=== PATIENT | female | born 1995 | race Caucasian/White ===

== ENCOUNTER 2021-05-14 16:29 | Emergency (ER) | payer SELFPAY ==
[~2021-05-14] VITALS: Ht 165.1 cm; Wt 83.9 kg
[2021-05-14 16:57] VITALS: BP 117/58
--- NOTE | 2021-05-14 17:00 | NUR ---
THE PATIENT IS SENT HERE FROM [facility] FOR POSSIBLE TAMPON STUCK IN HER VAGINA BECAUSE THEY DON'T HAVE AN ULTRASOUND. RATES ABD PAIN 5/10. DENIES FEVER/CHILLS. WILL CONTINUE TO MONITOR THE PATIENT
--- NOTE | 2021-05-14 18:10 | NUR ---
URINE COLLECTED AND SENT TO THE LAB
[2021-05-14 18:56] LABS: BILIRUBIN,URINE NEGATIVE (NEGATIVE); COLOR,URINE YELLOW (YELLOW); LEUKOCYTE ESTERASE ,URINE SMALL (NEGATIVE); NITRITE, URINE NEGATIVE (NEGATIVE); PH,URINE 6.5 (5.0-8.0); PROTEIN,URINE NEGATIVE (NEGATIVE); UGLUCOSE NEGATIVE (NEGATIVE); UROBILINOGEN,URINE 0.2 EU/dL (0.2)
[2021-05-14 19:01] LABS: BACTERIA,URINE 2+ /HPF (None Seen); RBC,URINE 0-2 /HPF (0-2); WBC,URINE 21-50 /HPF (0-3)
[2021-05-14] MEDS ORDERED: CEPHALEXIN MONOHYDRATE 500 MG CAPSULE PO ONE ×2 (19:30→19:44)
== END 2021-05-14 20:31 | disposition home or self-care (01) ==
LOC: ER 16:32
DX: N39.0 Urinary tract infection, site not specified (principal)
CPT/HCPCS: 76856-TC; 81001; 84703-TC; 87086-TC; 87186-TC